=== PATIENT | female | born 1980 | race Asian ===

== ENCOUNTER → 2019-10-17 | Emergency (ER) | payer MEDICAID ==
[~2019-10-17] VITALS: Ht 165.1 cm; Wt 73.0 kg
[~2019-10-17] MED LIST: BENADRYL ALLERG25 M1 PO; LIDODERM700 M1 TOPIC; OMEPRAZOLE20 M3 ORAL; OPCON-A EYE DRO15 ML OP; ROBAXIN-500MG ORAL; TYLENOL EXTRA500 MG ORAL
[2019-10-17 11:02] VITALS: BP 127/94
--- NOTE | 2019-10-17 11:15 | Emergency Room Report ---
History of Present Illness General Chief Complaint: Eye Problems Source: Patient Present Illness HPI The patient presents with right eye swelling, redness and itching. This is been going on for a couple of days. She had this problem a year ago but it was bilateral. It seemed to improve with antihistamines. She denies any fever or crusting. There is no change in her vision. She denies headache and sore throat. She is uncertain what causes these episodes. 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 Patient History Last Menstrual Period: 10/09/19 Now: No Nursing Documentation-[facility] Past Medical History: No History, Except For Review of Systems Constitutional: Reports: see HPI Eye: Reports: see HPI ENT: Reports: see HPI Skin: Reports: see HPI Neurological: Reports: see HPI Allergic: Reports: see HPI Physical Exam Vital Signs Date Time Temp Pulse Resp B/P (MAP) Pulse Ox O2 Delivery O2 Flow Rate FiO2 10/17/19 10:50 98.1 87 17 122/90 (101) 8 Room Air Sp02 EP Interpretation: reviewed, normal General Appearance: well appearing, no apparent distress, GCS 15 Head: normocephalic Eyes: right eye other - Periorbital erythema with mild swelling, minimal scleral injection with some conjunctival cobblestoning; bilateral eye PERRL, bilateral eye EOMI ENT: normal pharynx, moist mucus membranes Neck: normal inspection Cardiovascular #1: regular rate, rhythm Cardiovascular #2: 2+ radial (L) Gastrointestinal: normal inspection Musculoskeletal: gait/station normal Neurologic: alert, grossly normal Psychiatric: mood/affect normal Skin: warm/dry, other - Minimal periorbital edema without discharge Medical Decision Making Diagnostic Impression: Primary Impression: Allergic conjunctivitis Qualified Codes: H10.11 - Acute atopic conjunctivitis, right eye ER Course Patient presents with right eye swelling, redness and itching. Differential includes allergic conjunctivitis, periorbital cellulitis, other conjunctivitis amongst others. Based on her history and exam allergic conjunctivitis is suspected. Visual acuities reviewed. Discussed treatment with patient. Discussed the importance of follow-up with her doctor and possibly an process safety specialist. Patient stable for outpatient observation and treatment. Last Vital Signs Date Time Temp Pulse Resp B/P (MAP) Pulse Ox O2 Delivery O2 Flow Rate FiO2 10/17/19 11:30 98.0 89 18 129/88 96 Room Air Status: improved Disposition: HOME, SELF-CARE Condition: Improved Scripts Diphenhydramine Hcl (BENADRYL ALLERGY) 25 Mg Tablet 25 MG PO Q6HR PRN for Itching, #10 TAB Prov: Marc Hong MD 10/17/19 Naphazoline Hcl/Pheniramine (OPCON-A EYE DROPS) 15 Ml Drops 2 DROP OP Q8HR, #10 ML Prov: Marc Hong MD 10/17/19 Marc Hong MD Oct 17, 2019 11:15
[2019-10-17 11:30] VITALS: BP 129/88
== END | disposition home or self-care (01) ==
LOC: EMR 11:20
DX: H10.11 Acute atopic conjunctivitis, right eye (principal)
CPT/HCPCS: 99282

== ENCOUNTER 2019-12-11 15:37 | Emergency (ER) | payer MEDICAID ==
[~2019-12-11] VITALS: Ht 162.6 cm; Wt 75.7 kg
[2019-12-11 15:44] VITALS: BP 145/84
[2019-12-11 16:07] LABS: APPEARANCE,URINE SLIGHTLY CLOUDY; BILIRUBIN, URINE NEGATIVE (NEGATIVE); COLOR,URINE PALE YELLOW; GLUCOSE, URINE (UA) NEGATIVE (NEGATIVE); KETONES,URINE NEGATIVE (NEGATIVE); LEUKOCYTE ESTERASE ,URINE 3+ (NEGATIVE); NITRITE,URINE NEGATIVE (NEGATIVE); PH,URINE 8 (4.5-8.0); PROTEIN,URINE NEGATIVE (NEGATIVE); UROBILINOGEN,URINE NORMAL MG/DL (0.0-1.0)
[2019-12-11 16:16] LABS: BASOPHILS % (AUTO) 1.1 % (0.0-2.0); EOSINOPHILS % (AUTO) 3.9 % (0.0-3.0); HEMATOCRIT 34.7 % (37.0-47.0); HEMOGLOBIN 11.2 G/DL (12.0-16.0); MEAN CORPUSCULAR VOLUME 81 FL (80-99); MONOCYTES % (AUTO) 4.1 % (1.0-10.0); NEUTROPHILS % (AUTO) 60.8 % (45.0-75.0); PLATELET COUNT 282 K/UL (150-450); RED BLOOD COUNT 4.29 M/UL (4.20-5.40); RED CELL DISTRIBUTION WIDTH 12.8 % (11.6-14.8); WHITE BLOOD COUNT 9.5 K/UL (4.8-10.8)
[2019-12-11 16:26] LABS: ANION GAP 12 mmol/L (5-15); BLOOD UREA NITROGEN 11 mg/dL (7-18); CALCIUM 8.8 MG/DL (8.5-10.1); CARBON DIOXIDE 24 MMOL/L (21-32); CHLORIDE 104 MMOL/L (98-107); CREATININE 0.7 MG/DL (0.55-1.30); SODIUM 140 MMOL/L (136-145)
[2019-12-11 16:30] LABS: ALANINE AMINOTRANSFERASE 30 U/L (12-78); ALBUMIN 4.1 G/DL (3.4-5.0); ALBUMIN/GLOBULIN RATIO 1.4 (1.0-2.7); ALKALINE PHOSPHATASE 78 U/L (46-116); ASPARTATE AMINO TRANSFERASE 12 U/L (15-37); BILIRUBIN,TOTAL 0.2 MG/DL (0.2-1.0)
--- NOTE | 2019-12-11 16:42 | Emergency Room Report ---
History of Present Illness General Chief Complaint: Skin Rash/Abscess Source: Patient Present Illness HPI 39-year-old female with no nausea no past medical history complaining of 1 month of generalized pruritus without any rash. Denies any anaphylaxis, difficulty breathing or swallowing. Reports that the only dietary changes that she has had is addition of cinnamon to her diet every day. Denies any new contact with animals or allergens. Has not had been seen by primary doctor. Denies any recent travel, history of liver disease, urinary symptoms. Complains of suprapubic pain for the past 2 days however denies any dysuria urinary frequency urgency. Denies any hematuria. Reports that menstruation is irregular and has always been irregular. Denies nausea vomiting diarrhea. Denies . 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 Patient History Past Medical History: see triage record Past Surgical History: none Pertinent Family History: none Last Menstrual Period: 11/23/19 Now: No Immunizations: UTD Reviewed Nursing Documentation: PMH: Agreed; PSxH: Agreed Nursing Documentation-PMH Past Medical History: No History, Except For Review of Systems All Other Systems: negative except mentioned in HPI Physical Exam Vital Signs Date Time Temp Pulse Resp B/P (MAP) Pulse Ox O2 Delivery O2 Flow Rate FiO2 12/11/19 15:39 97.5 74 18 145/84 (104) 99 Room Air Sp02 EP Interpretation: reviewed, normal General Appearance: no apparent distress, alert, GCS 15, non-toxic Head: normocephalic, atraumatic Eyes: bilateral eye normal inspection, bilateral eye PERRL ENT: hearing grossly normal, normal pharynx, no angioedema, normal voice Neck: full range of motion, supple/symm/no masses Respiratory: chest non-tender, lungs clear, normal breath sounds, no rhonchi, n o respiratory distress, speaking full sentences Cardiovascular #1: regular rate, rhythm, no edema Gastrointestinal: normal bowel sounds, non tender, soft, no mass, no organomegaly, no peritonitis, non-distended, no guarding, no rebound Rectal: deferred Genitourinary: no CVA tenderness Musculoskeletal: back normal, no calf tenderness Neurologic: alert, motor strength/tone normal, oriented x3, sensory intact, responsive, speech normal Psychiatric: judgement/insight normal, memory normal, mood/affect normal, no suicidal/homicidal ideation Skin: no rash Lymphatic: no adenopathy Medical Decision Making PA Attestation All my diagnosis and treatment plans were reviewed ad discussed with my supervising physician Dr. Koch Diagnostic Impression: Primary Impression: Generalized pruritus Additional Impression: UTI (urinary tract infection) ER Course 39-year-old female with no nausea no past medical history complaining of 1 month of generalized pruritus without any rash. Denies any anaphylaxis, difficulty breathing or swallowing. Reports that the only dietary changes that she has had is addition of cinnamon to her diet every day. Denies any new contact with animals or allergens. Has not had been seen by primary doctor. Denies any recent travel, history of liver disease, urinary symptoms. Complains of suprapubic pain for the past 2 days however denies any dysuria urinary frequency urgency. Denies any hematuria. Reports that menstruation is irregular and has always been irregular. Denies nausea vomiting diarrhea. Denies . Ddx considered but are not limited to:, Allergic urticaria,generalized pruritus, anaphylaxis, liver disease Vital signs: are WNL, pt. is afebrile H&PE are most consistent with:.Generalized pruritus, UTI ORDERS: CBC, CMP, UA, urine , prednisone, Benadryl, Keflex ED INTERVENTIONS: None required at this time. DISCHARGE: At this time pt. is stable for d/c to home. Will provide printed patient care instructions, and any necessary prescriptions. Care plan and follow up instructions have been discussed with the patient prior to discharge. Patient take medication as directed, follow primary care provider for allergy testing and further evaluation, avoid using cinnamon allergy medication because of her generalized pruritus, avoid spicy food, if worsening symptoms return to the emergency room Last Vital Signs Date Time Temp Pulse Resp B/P (MAP) Pulse Ox O2 Delivery O2 Flow Rate FiO2 12/11/19 15:44 97.5 71 18 145/84 99 Room Air Disposition: HOME, SELF-CARE Condition: Stable Scripts Cephalexin* (KEFLEX*) 500 Mg Capsule 500 MG ORAL EVERY 12 HOURS for 7 Days, #14 CAP 0 Refills Prov: Oscar Marinelli 12/11/19 Diphenhydramine HCl (Benadryl) 25 Mg Capsule 25 MG PO BID, #20 CAP Prov: Oscar Marinelli 12/11/19 Prednisone* (PREDNISONE*) 20 Mg Tablet 40 MG ORAL DAILY for 5 Days, #10 TAB Prov: Oscar Marinelli 12/11/19 Referrals: Nino Bhatt MD (PCP) Patient Instructions: Pruritus, Urinary Tract Infection, [id number] Additional Instructions: Take medication as directed, follow primary care provider, you need to also have an allergy testing done requested by your primary doctor, worsening symptoms return to the emergency room Oscar Marinelli Dec 11, 2019 16:42
[2019-12-11] MEDS ORDERED: BENADRYL25 M3 PO (16:43)
[2019-12-11] MEDS ORDERED: PREDNISONE20 MG ORAL (16:43)
[2019-12-11] MEDS ORDERED: CEPHALEXIN500 MG ORAL (16:43)
[2019-12-11 16:49] VITALS: BP 132/79
== END 2019-12-11 16:50 | disposition home or self-care (01) ==
LOC: EMR 16:06
DX: L29.9 Pruritus, unspecified (principal); N39.0 Urinary tract infection, site not specified
CPT/HCPCS: 36415; 80053; 80307; 81003; 81025; 85025; 87086; Z7502; 99283